=== PATIENT | female | born 1955 | race Caucasian/White ===

== ENCOUNTER → 2017-07-04 | Outpatient (CLI) | payer MEDICARE, OTHER ==
--- NOTE | 2017-07-04 12:41 | BD ---
EXAMINATION TYPE: MG DEXA axial skeleton. DATE OF EXAM: 07/04/2017 COMPARISON: NONE CLINICAL HISTORY: 61 YR OLD FEMALE....ICD-10 CODE: Z13.820 ENCOUNTER FOR SCREENING, Z79.52 FOR O STEOPOROSIS Height: 61 Weight: 134 FRAX RISK QUESTIONS: Alcohol (3 or more units per day): NO Family History (Parent hip fracture): NO Glucocorticoids (More than 3mos): YES (Ex: prednisone, prednisolone, methylprednisolone, dexamethasone, and hydrocortisone). History of Fracture in Adulthood: YES Secondary Osteoporosis: YES 1. Type 1 Diabetes: NO 2. Hyperthyroidism: NO 3. Menopause before 45: YES, 41 YRS OLD 4. Malnutrition: NO 5. Chronic liver disease: NO Rheumatoid Arthritis: NO, RH FACTOR + Current Tobacco Use: NO RISK FACTORS HISTORY OF: PELVIS FX....AT 48 YRS OLD Spine Fracture: NO History of Wrist Fracture: LT WRIST AT 18 YRS OLD Active: YES Diet low in dairy products/other sources of calcium: NO Postmenopausal woman: YES AT AGE 41 YRS Poor Health: MANY AUTO IMMUNE DISEASES Hyperparathyroidism: POSSIBLY, BEING CHECKED Adrenal Insufficiency: NO MEDICATIONS: Prednisone or other steroids: YES, How Long: MANY YRS ON AND OFF Thyroid Medications: YES, SYNTHROID How Long: SINCE 1984 Additional Medications: CALCIUM AND VIT D, NSAIDS, PLAQUENIL Additional History: LUPUS AND INCLUSION MYOSITIS, FIBROMYALGIA, SHOGREN, SUHAIL, EXAM MEASUREMENTS: Bone mineral densitometry was performed using the [employer] System. Bone mineral density as measured about the Lumbar spine is: ----- L1-L4(G/cm2): 1.126 T Score Values are as follows: ----- L1: -0.9 ----- L2: -0.4 ----- L3: -0.2 ----- L4: -0.6 ----- L1-L4: 1.126 Bone mineral density NEW PT FOR [facility] Bone mineral density about the R hip (g/cm2): 0.951 Bone mineral density about the L hip (g/cm2): 1.003 T Score values are as follows: -----R Neck: -0.8 -----L Neck: -0.2 -----R Total: -0.5 -----L Total: 0.0 Bone mineral density NEW PATIENT FOR [facility] FRAX%S: THERE IS A 19.0% CHANCE OF A MAJOR OSTEOPOROTIC FX AND A 1.1% FOR HIP FX....PROBABILITY OF FX IN 10 YRS TIME IMPRESSION: Normal (Values between +1 and -1 indicate normal bone mass). Consider repeating this study in 5 year s or sooner if there is some new clinical indication. NOTE: T-SCORE=SD OF THE YOUNG ADULT MEAN.
== END | disposition home or self-care (01) ==
LOC: MERGE 09:20 → RADBDWWP 09:36
PROVIDERS: ATTEND Internal Medicine Rheumatology
DX: Z13.820 Encounter for screening for osteoporosis (principal); Z79.52 Long term (current) use of systemic steroids
CPT/HCPCS: 77080

== ENCOUNTER → 2021-02-12 | Outpatient (CLI) | payer MEDICARE ==
--- NOTE | 2021-02-12 19:47 | BD ---
EXAMINATION TYPE: Axial Bone Density DATE OF EXAM: 02/12/2021 COMPARISON: 07/04/2017 CLINICAL HISTORY: Postmenopausal female. Height: 60 IN Weight: 127 LBS FRAX RISK QUESTIONS: Glucocorticoids (More than 3mos): 10 MG PER DAY PREDNISONE FOR 10 YEARS+ (Ex: prednisone, prednisolone, methylprednisolone, dexamethasone, and hydrocortisone). Secondary Osteoporosis: 3. Menopause before 45: AGE 41 Rheumatoid Arthritis: YES RISK FACTORS HISTORY OF: History of Wrist Fracture: LT WRIST AGE 17 Family History of Osteoporosis: SELF Active: YES Postmenopausal woman: AGE 41 MEDICATIONS: Prednisone or other steroids: 10 MG PER DAY PREDNISONE How Lon + YEARS Thyroid Medications: YES Which medication: Synthroid How Long: SINCE 1983 Additional Medications: VIT D, PREDNISONE 10 MG PER DAY,SYNTHROID, PLAQUANIL,LUPUS MEDS, BABY ASPIRIN , EXAM MEASUREMENTS: Bone mineral densitometry was performed using the [employer] System. Bone mineral density as measured about the Lumbar spine is: ----- L1-L4(G/cm2): 1.087 T Score Values are as follows: ----- L2: -0.8 ----- L3: -0.1 ----- L4: -1.0 ----- L1-L4: -0.8 Bone mineral density has: Decreased -2.5% since study of: 07/04/2017 Bone mineral density about the R hip (g/cm2): 0.837 Bone mineral density about the L hip (g/cm2): 0.905 T Score values are as follows: -----R Neck: -1.4 -----L Neck: -1.0 -----R Total: -1.2 -----L Total: -0.8 Bone mineral density has: Decreased -9.7% since study of: 07/04/2017 IMPRESSION: Osteopenia (T Score between -2.5 and -1) is now present. There is slightly increased risk of fracture and the patient may be considered for treatment. Re-Screen 2-5 years. NOTE: T-SCORE=SD OF THE YOUNG ADULT MEAN.
== END | disposition home or self-care (01) ==
LOC: RADBDWWP 14:48
PROVIDERS: ATTEND Internal Medicine Rheumatology
DX: M85.89 Other specified disorders of bone density and structure, multiple sites (principal); Z78.0 Asymptomatic menopausal state
CPT/HCPCS: 77080

== ENCOUNTER → 2021-05-25 | Outpatient (CLI) | payer MEDICARE ==
--- NOTE | 2021-05-25 12:04 | CT ---
EXAMINATION TYPE: CT brain wo con DATE OF EXAM: 05/25/2021 COMPARISON: None HISTORY: 65-year-old female Chronic right parietal area headaches. TECHNIQUE: Examination was done in axial plane without intravenous contrast. Coronal and sagittal r econstructions performed. CT DLP: 1038.2 mGycm Automated exposure control for dose reduction was used. FINDINGS: There is no evidence of acute intracranial hemorrhage, acute ischemic changes, mass, mass-effect, or extra-axial fluid collection. There is no effacement of cerebral sulci or basal subarachnoid cister ns. There is no hydrocephalus. There is no midline shift. Strauss-white matter distinction is preserv ed. There is mild age related cerebral cortical volume loss. Leftward nasal septal deviation. Paranasal sinuses and mastoid air cells are pneumatized. Orbits and globes are intact. IMPRESSION: Mild age-related cerebral cortical volume loss. No acute intracranial abnormality seen.
== END | disposition home or self-care (01) ==
LOC: RADCTMAIN 11:36
PROVIDERS: ATTEND Nurse Practitioner Family
DX: G44.221 Chronic tension-type headache, intractable (principal)
CPT/HCPCS: 70450

== ENCOUNTER → 2021-12-05 | Outpatient (CLI) | payer MEDICARE, OTHER ==
--- NOTE | 2021-12-06 07:21 | CT ---
EXAMINATION TYPE: CT elbow RT wo con DATE OF EXAM: 12/05/2021 COMPARISON: 12/03/2021 plain films HISTORY: Rt Elbow pain CT DLP: 134.50 mGycm Automated exposure control for dose reduction was used. Contrast: None Technique: Axial images two mm thick sections. Reconstructed images in coronal and sagittal plane. FINDINGS: There is a supracondylar fracture of distal humerus. There is a fracture fragment of the lateral dist al humerus with the articular surface of the radius. Additional fracture line within the mid humerus extending lateral. Humeral ulnar joint space appears preserved. There is a fracture fragment of the m edial anterior humerus displaced superiorly. IMPRESSION: 1. COMMINUTED FRACTURE DISTAL HUMERUS. SOME DISPLACED FRAGMENTS ARE PRESENT INCLUDING THE MEDIAL DIST AL HUMERUS AND MINIMAL DISPLACEMENT OF A FRAGMENT ADJACENT TO THE ARTICULATION WITH THE RADIUS.
== END | disposition home or self-care (01) ==
LOC: RADCTMAIN 10:01
PROVIDERS: ATTEND Orthopaedic Surgery Hand Surgery
DX: S42.351A Displaced comminuted fracture of shaft of humerus, right arm, initial encounter for closed fracture (principal)

== ENCOUNTER 2021-12-12 12:14 | Day surgery (SDC) | payer MEDICARE ==
[2021-12-10 13:19] VITALS: BMI 25.4
--- NOTE | 2021-12-11 11:00 | P.HPOR ---
History of Present Illness H&P Date: 12/11/21 Chief Complaint: Right capitellum fracture, displaced. Subjective: This is a 66 year old female that presents today for initial evaluation regarding a right elbow injury that occurred on 10/16/2021. She states that while at her home in [place], [place] a goat on her farm jumped into her and knocked her over. She fell onto an outstretched arm. She had immediate pain and swelling and bruising and was seen in the emergency department the same day and placed in a sling. She was seen by an orthopedic surgeon near her home in [place] and was told that she has a small chip fracture of her elbow and ultimately he recommended nonoperative treatment. She then saw the surgeon 5 weeks later and was told that the fracture had moved and that she should seek further opinion with a specialist. She presents today stating that she is unable to use the elbow and is having severe pain with any type of movement. Prior to this injury she states she was completely independent, she did use a cane for stabilization due to weakness from an autoimmune condition but was able to cook, clean, look after her animals, drive and feed herself. She states since the injury she is unable to do any of this and is now become reliant on her friend who helps her. She is unable to bring her elbow to her mouth to feed herself or clean her self due to pain and a mechanical block with attempted elbow motion, she is right-hand dominant. Physical Examination: RUE: AIN/PIN/Radial/Ulnar/Median motor intact. Radial/Ulnar/Median SILT. 2+/4 Radial/Ulnar pulses palpated. 5/5 APB, 5/5 FDI. Elbow flexion, extension 15-95. Pronation/supination 50. Crepitus appreciated with passive and active elbow flexion and extension, reproducing pain. Swelling around the elbow, compartments are soft and compressible. Imaging: X-Rays of the right elbow demonstrate a comminuted and displaced capitellum fracture with extension into the lateral epicondyle. There is medial extension of the fracture that extends into and involves the lateral half of the trochlea. Ulnohumeral joint is congruent and reduced. Capitellum fracture appears to be superiorly displaced approximately 3.5 cm. Early bony callus formation is present around fracture fragments. Impression: 1.) Right subacute comminuted displaced right capitellum fracture Plan: Diagnosis and treatment options were discussed with the patient. We discussed the complexity of her issue now being 7 weeks out from her initial injury date. We discussed her imaging findings and it was explained that she has a sig nificantly displaced intra-articular distal humerus fracture involving the capitellum and trochlea. Currently she does not have functional range of motion of her elbow and has lost independence due to this injury in the last 7 weeks and is unable to feed herself with her dominant hand. We discussed continued observation versus operative intervention, which could possibly consist of fragment excision versus capitellum open reduction internal fixation. I did explain that she is at high risk for stiffness and complications due to the subacute nature of her injury as well as her multiple medical comorbidity. At this time, I believe she would benefit from surgical intervention considering how much she relies on his hand and her preoperative functional status. We discussed further advanced imaging will be required prior to developing a formal operative plan.Computed tomography scan was ordered of the right elbow for possible surgical planning. Risks and benefits of surgery including bleeding, infection, damage to surrounding tissue, need for further surgery, stiffness, residual numbness were discussed and the patient wished to go forward with surgery. She expressed understanding of this and was agreeable with this plan of action. She will be schedule for right capitellum fracture ORIF vs fragment excision with possible lateral ulnar collateral ligament repair. -John Serrano DO Orthopedic Hand/Upper Extremity Surgeon Past Medical History Past Medical History: Fibromyalgia, Hearing Disorder / Deafness, Musculoskeletal Disorder, Rheumatoid Arthritis (RA), Thyroid Disorder Additional Past Medical History / Comment(s): Lupus. "Dr watches kidneys because of Imuran." Inclusion Body Myosititis, Raynauds, MAC(Myobacterium Avium Complex). Poor hearing. History of Any Multi-Drug Resistant Organisms: None Reported Past Surgical History: Hernia Repair, Tonsillectomy, Tubal Ligation Additional Past Surgical History / Comment(s): Bronchoscopy, thigh muscle biopsy, colonoscopy, chest tube. Past Anesthesia/Blood Transfusion Reactions: No Reported Reaction Additional Past Anesthesia/Blood Transfusion Reaction / Comment(s): Sister had high BP. Past Psychological History: No Psychological Hx Reported Smoking Status: Never smoker Past Alcohol Use History: Occasional Past Drug Use History: None Reported - Past Family History Mother Family Medical History: Cancer Additional Family Medical History / Comment(s): Cervical cancer. Father Family Medical History: Cancer Additional Family Medical History / Comment(s): Skin cancer. Medications and Allergies Home Medications Medication Instructions Recorded Confirmed Type Aspirin [Adult Low Dose Aspirin EC] 81 mg PO QAM 12/10/21 12/10/21 History Cholecalciferol [Vitamin D3 (25 25 mcg PO DAILY 12/10/21 12/10/21 History Mcg = 1000 Iu)] Hydroxychloroquine Sulfate 200 mg PO BID 12/10/21 12/10/21 History [Plaquenil] Levothyroxine Sodium [Synthroid] 75 mcg PO QAM 12/10/21 12/10/21 History azaTHIOprine [Imuran] 50 mg PO BID 12/10/21 12/10/21 History predniSONE 5 mg PO QAM 12/10/21 12/10/21 History Allergies Allergy/AdvReac Type Severity Reaction Status Date / Time No Known Allergies Allergy Verified 12/10/21 12:54 Physical Examination Osteopathic Statement: *. No significant issues noted on an osteopathic structural exam other than those noted in the History and Physical/Consult.
[~2021-12-12 12:14] MED LIST: DEXAMETHASONE SOD PHOSPHATE 4 MG/ML 1 ML VIAL IV ONE; HYDROmorphone 0.5 MG/0.5 ML SYRINGE IVP PRN; LACTATED RINGERS 1,000 ML IV SCH; LIDOCAINE 1% (10MG/ML) FOR IV START INTRADERMA PRN; MIDAZOLAM 2 MG/2 ML VIAL IV PRN; ONDANSETRON 4 MG/2 ML VIAL IVP ONE
[2021-12-12 13:14] LABS: Glucose,Whole Blood 81 mg/dL (70-110)
[2021-12-12] MEDS ORDERED: ONDANSETRON 4 MG/2 ML VIAL IVP ONE ×2 (13:15→18:26)
[2021-12-12] MEDS ORDERED: HYDROCORTISONE SUCCINATE 100 MG/2 ML VIAL IVP ONE (13:15)
[2021-12-12] MEDS ORDERED: fentaNYL (PF) 50 MCG/ML 2 ML AMP IVP ONE (13:18)
[2021-12-12] MEDS ORDERED: MIDAZOLAM 2 MG/2 ML VIAL IVP ONE (13:18)
[2021-12-12 13:29] VITALS: RESP 16
--- NOTE | 2021-12-12 13:34 | P.ANPRN ---
Procedure Note - Anesthesia - Nerve Block Performed Right Supraclavicular Single Time Out Performed: Yes Date of Procedure: 12/12/21 Procedure Start Time: : Procedure Stop Time: Location of Patient: PreOp Indication: Requested by Surgeon Specifically requested for management of pain by DrVeda: John Serrano Sedation Type: Sedate with meaningful contact maintained Preparation: Sterile Prep Position: Supine Needle Types: Pajunk Needle Gauge: 21 Ultrasound used to visualize needle placement: Yes Ultrasound used to observe medication spread: Yes Injectate: 0.5% Ropivacaine (see comment for volume) (25 ml + 10 mg Dexamethasone) Blood Aspirated: No Pain Paresthesia on Injection Noted: No Resistance on Injection: Normal Image Stored and Saved: Yes Events: Uneventful and Well Tolerated
[2021-12-12] MEDS ORDERED: MIDAZOLAM 2 MG/2 ML VIAL ONE (14:18)
[2021-12-12] MEDS ORDERED: LIDOCAINE 2% INJ 20 MG/ML (2 ML VIAL) ONE (14:18)
[2021-12-12] MEDS ORDERED: PHENYLEPHRINE-0.9% NACL SYG 1,000 MCG/10 ML SYRINGE ONE (14:18)
[2021-12-12] MEDS ORDERED: fentaNYL (PF) 50 MCG/ML 2 ML AMP ONE (14:18)
[2021-12-12] MEDS ORDERED: DEXAMETHASONE SOD PHOSPHATE 10 MG/ML 1 ML VIAL ONE (14:18)
[2021-12-12] MEDS ORDERED: PROPOFOL 10 MG/ML 20 ML VIAL IV ONE (14:18)
[2021-12-12] MEDS ORDERED: ROPIVACAINE 5 MG/ML 30 ML VIAL ONE (14:18)
[2021-12-12] MEDS ORDERED: LACTATED RINGERS 1,000 ML IV ONE (14:49)
[2021-12-12 17:15] VITALS: TEMP 97.4
[2021-12-12 18:55] VITALS: BP 110/51
[2021-12-12 18:56] VITALS: PULSE 70
--- NOTE | 2021-12-13 08:51 | P.OP ---
Date of Procedure: 12/12/21 Preoperative Diagnosis: 1.) Right subacute displaced intra-articular distal humerus fracture 2.) Right elbow contracture Postoperative Diagnosis: 1.) Right subacute displaced intra-articular distal humerus fracture 2.) Right elbow contracture Procedure(s) Performed: 1.) Open treatment of subacute displaced intra-articular distal humerus fracture (06927) 2.) Right open elbow contracture release (69078) Implants: 1.) Arthrex 2.5mm Micro headless compression FT screws x 3. 18mm ,22mm, 26mm. Anesthesia: NIKOS, regional Surgeon: John Serrano Fur Nailer #1: Giancarlo Mueller Estimated Blood Loss (ml): 40 Pathology: none sent Condition: stable Disposition: PACU Description of Procedure: This is a 66 year old right hand dominant female who sustained a complex and displaced right intra-articular distal humerus fracture on 10/16/21. She was initially treated by another orthopedic surgeon who at that time recommend non- operative treatment for her displaced intra-articular distal humerus fracture. Ultimately the patient noted that she had continued pain and inability to move the right elbow after 6 weeks of non operative treatment and was unable to perform any type of task with this arm including feeding herself and hygiene. She was previously living independtly but since the injury has relied on others to feed herself and clean. She was found to have continued pain and a 15-20 degree range of motion arc and was referred to me for further evaluation approximately 1.5 months out from the day of her injury. After lengthy discussion of her diagnosis and treatment options, she elected to pursue surgery for pain control and to improve her functional range of motion. Risks and benefits of surgery were discussed with the patient including bleeding, damage to surrounding tissue, infection, instability, post traumatic arthritis, stiffness, need for further surgery as well as risks of anesthesia including pulmonary embolism and even and the patient wished to proceed with surgical intervention. The patient was seen in the pre-operative area by myself. Consent and H&P were completed and updated. The correct extremity was marked in the pre-operative area by myself and all other questions were answered. Operative Narrative: The patient was brought to the operating room by the department of anesthesia. They remained on the portable stretcher and a rolling hand table was brought to the side of the operative extremity. Pre-operative time out was performed indicating the correct patient, procedure and laterality. All in the room agreed. Pre-operative antibiotics were given prior to skin incision. The patient received a regional block by the department of anesthesia in the pre op area prior to entering the OR. The patient was then drifted off to sleep by the department of anesthesia. A nonsterile tourniquet was then applied to the operative extremity and the right upper extremity was then prepped and draped in normal sterile fashion. The operative extremity was then exsanguinated with an esmarch bandage and the tourniquet was inflated to 250mmHg. Curvilinear incision was made along the lateral aspect of the elbow from the lateral distal humeral ridge towards the epicondyle then carried distally down the lateral forearm. Bovie cautery was used for meticulous hemostasis. Dissection was taken down to subcutaneous tissues. Lateral distal humeral ridge was identified and the common extensor origin was released with a 15 blade scalpel and carried distally to the lateral epicondyle. Care was taken to stay along the anterior portion of the lateral epicondyle and the incision was carried distally by performing a EDC split approach while preserving the intact LUCL. Capsular incision was then made and entrance into the elbow joint was appreciated. There was extensive scarring of the anterior capsule to the anterior distal humerus. Upon entering the joint, there was extensive comminution of the far lateral and distal portion of the lateral epicondyle. There were several comminuted coronally sheared intra-articular fragments identified throughout the elbow. There was a multi-fragmented portion of the central anterior distal humerus which was found along the anterior portion of the meta-diaphyseal junction of the distal humerus that appeared to be made up of 2 pieces which involved the lateral portion of the trochlea and the medial portion of the capitellum which was causing the mechanical block to flexion. These fragments had a thick layer of newly formed fibrous/early callous tissue attaching them to the anterior distal humeral metadiaphyseal surface. Fracture fragments were removed and debridement of fracture bed was performed with irrigation, suction, and currette. The fragment that was found to be the lateral half of the trochlea was extremely small and thin and not amendable to screw fixation after attempted reduction with k-wire, therefore the fragment was excised. Cheatham elevator was used to release the scarred down anterior capsule from the anterior surface of the distal humerus. Two other fragments of the distal humerus were identified, a large healing portion of the posterior capitellum found anteriorly, and a small fragmented portion of the lateral epicondyle. The small fragmented lateral epicondyle fragment was very friable and contained no LUCL attachment and was blocking reduction of the larger capitellum piece, therefore, it was excised. The carlos void that remained at the lateral portion of the trochlea was able to be filled by one of the larger pieces of posterior capitellum to create a new articulating portion of the lateral trochlea which was secured with a Arthrex 2.5mm headless compression screw. K-wire was placed in the fragment, over-drill was performed, measurement was taken, and the screw was inserted and correct length was confirmed on flouroscopy. The elbow was then flexed and extended and unrestricted smooth elbow flexion was able to be achieved to 120 degrees. Next, another large portion of the capitellum was able to be near anatomically reduced to it's port lions position after fracture bed debridement was performed. This was held reduced with dental pick. Two K-wires were inserted into the fragment and screw lengths were checked under fluoroscopy and over-drilling was performed. The screws were inserted and good rotational control of the fragment was obtained. This restored the radiocapitellar articulation very well. Flexion/extension arc was then tested again and smooth arc range of motion from 30 to 120 was performed. Of note, the patient did appear to have a chronically deformed trochl ear notch on her olecranon that appeared squared off which was limiting full extension. Final imaging was taken and the elbow was taken through ROM which was now 30- 120 degrees under live fluoroscopy with no signs of instability or mechanical block to flexion. The wound was then copiously irrigated and then capsular closure was performed with 2-0 Vicryl suture which was incorporated into the intact LUCL repair followed by repair of the common extensor mechanism back down to the capsular tissue to provide added stability. Subcutaneous skin closure was performed with 3-0 monocryl suture following by a running 4-0 nylon suture. Sterile dressing was then applied with adaptic followed by 4x4s, cast padding, and a plaster long arm splint with the arm held in 90 degrees of flexion. The patient was then woken by the department of anesthesia and transferred to PACU in stable condition. Giancarlo RICHARDSON was present for assistance in reduction, hardware placement and protection of vital neurovascular structures. John Serrano DO Orthopedic Hand/Upper Extremity Surgeon
== END 2021-12-12 18:35 | disposition home or self-care (01) ==
LOC: OR 12:14
PROVIDERS: ATTEND Orthopaedic Surgery Hand Surgery
DX: S42.451A Displaced fracture of lateral condyle of right humerus, initial encounter for closed fracture (principal); G89.18 Other acute postprocedural pain; M24.521 Contracture, right elbow; X58.XXXA Exposure to other specified factors, initial encounter
CPT/HCPCS: 24546; 24006; 64415; 76942; C1713; J2250; J1100; J1720; J0690; J2405; J3010; J2795; J2370; J2704; J2001

== ENCOUNTER → 2023-04-29 | Outpatient (CLI) | payer MEDICARE ==
--- NOTE | 2023-04-29 22:20 | BD ---
EXAMINATION TYPE: Axial Bone Density DATE OF EXAM: 04/29/2023 CLINICAL HISTORY: 67 years old Female. 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 History of Fracture in Adulthood: yes Secondary Osteoporosis: yes 3. Menopause before 45: yes, at 41 RISK FACTORS HISTORY OF: hx of rt elbow fx as an adult collar bone, ribs, pelvis all as an adult 2005 pt in a WHEELCHAIR, no muscle mass pt has lupus MEDICATIONS: Thyroid Medications: yes, synthroid since 1984 vit d, EXAM MEASUREMENTS: Bone mineral densitometry was performed using the [employer] System. Bone mineral density as measured about the Lumbar spine is: ----- L1-L4(G/cm2): 1.038 T Score Values are as follows: ----- L1: -2.1 ----- L2: -1.4 ----- L3: -0.7 ----- L4: -1.0 ----- L1-L4: -1.2 Z Score Values are as follows: ----- L1: 0.0 ----- L2: 0.6 ----- L3: 1.4 ----- L4: 1.1 ----- L1-L4: 0.9 Bone mineral density has: Decreased -4.5% since study of: 02.12.2021 Bone mineral density about the R hip (g/cm2): 0.828 Bone mineral density about the L hip (g/cm2): 0.842 T Score values are as follows: -----R Neck: -1.4 -----L Neck: -1.0 -----R Total: -1.4 -----L Total: -1.3 Z Score values are as follows: -----R Neck: 0.4 -----L Neck: 0.8 -----R Total: 0.1 -----L Total: 0.3 Bone mineral density has: Decreased -5.3% since study of: 02.12.2021 FRAX%s: The graph provided illustrates a 21.5% chance for a major osteoporotic fx and a 2.7% chance f or the hips probability for fx in 10 years time. IMPRESSION: Osteopenia (T Score between -2.5 and -1). There is slightly increased risk of fracture and the patient may be considered for treatment. Re-Screen 2-5 years. NOTE: T-SCORE=SD OF THE YOUNG ADULT MEAN.
== END | disposition home or self-care (01) ==
LOC: RADBDWWP 10:40
PROVIDERS: ATTEND Internal Medicine Rheumatology
DX: M85.89 Other specified disorders of bone density and structure, multiple sites (principal); Z79.52 Long term (current) use of systemic steroids; Z78.0 Asymptomatic menopausal state
CPT/HCPCS: 77080